=== PATIENT | male | born 1995 | race Caucasian/White ===

== ENCOUNTER 2018-02-17 18:17 | Emergency (ER) | payer SELFPAY ==
[~2018-02-17] VITALS: Ht 172.7 cm; Wt 72.7 kg
[2018-02-17 18:23] VITALS: BP 145/87; TEMP 99.4
[2018-02-17 20:45] VITALS: PULSE 67
== END 2018-02-17 20:45 | disposition home or self-care (01) ==
LOC: COL.ER 18:17
DX: H57.8 Other specified disorders of eye and adnexa (principal); Z77.098 Contact with and (suspected) exposure to other hazardous, chiefly nonmedicinal, chemicals; F17.210 Nicotine dependence, cigarettes, uncomplicated; Z87.442 Personal history of urinary calculi
CPT/HCPCS: J7120